=== PATIENT | male | born 1965 | race Caucasian/White ===

== ENCOUNTER 2018-12-12 08:21 | Day surgery (SDC) | payer OTHER ==
[2018-12-12] MEDS ORDERED: PROPOFOL INJ 200 MG/20 ML VIAL IV ONE (10:49)
[2018-12-12] MEDS ORDERED: MIDAZOLAM 2 MG/2 ML INJ ONE (10:49)
--- NOTE | 2018-12-12 11:25 | Operative Report ---
Operative Report DATE OF SURGERY: 12/12/18 PREOPERATIVE DIAGNOSIS: Epigastric pain rule out peptic ulcer disease POSTOPERATIVE DIAGNOSIS: gastritis, biopsy to rule out for H.Pylori. Arreaga's s/p ablation with RFA OPERATION: EGD with ablation. EGD with biopsy SURGEON: LIBORIO COTA ANESTHESIA: LMAC TISSUE REMOVED OR ALTERED: As noted above. ESTIMATED BLOOD LOSS: None. INTRAOPERATIVE FINDINGS: As noted above. PROCEDURE: patient tolerated his procedure well no immediate post procedure complications are noted patient is discharged in good condition discharge date : 12/12/18 discharge diet: regular discharge activity: regular will follow up on biopsy 2-3 week follow up to discuss findings patient is instructed to call the office or proceed to the ED if there are any other problems
[2018-12-12 12:50] VITALS: BP 119/79
[2018-12-12] MEDS ORDERED: LIDOCAINE 2% INJ-PF (20 MG/ML) 2 ML AMPUL ONE (14:55)
== END 2018-12-12 12:15 | disposition home or self-care (01) ==
LOC: OROUT 08:21
PROVIDERS: ATTEND Internal Medicine Gastroenterology
DX: K29.50 Unspecified chronic gastritis without bleeding (principal); K22.70 Barrett's esophagus without dysplasia; F17.210 Nicotine dependence, cigarettes, uncomplicated; Z79.899 Other long term (current) drug therapy
CPT/HCPCS: 43270; 43239; 88342 ×2; 88305 ×2; J2250; J2704; J3490; 731